=== PATIENT | female | born 1950 | race Caucasian/White ===

== ENCOUNTER 2019-08-08 10:13 | Inpatient (IN) ==
[2019-08-08] MEDS ORDERED: ONDANSETRON 4 MG/2 ML VIAL IV STA (10:39)
[2019-08-08 11:04] LABS: Basophils # 0.1 10*3/uL (0.0-0.2); Basophils % 0.3 % (0.0-0.8); Hematocrit 41.4 VOL% (35.7-47.0); Hemoglobin 13.4 GM/DL (12.0-16.0); Immature Granulocytes % 0.6 %; Lymphocytes # 0.7 10*3/uL (1.4-4.0); Lymphocytes % 4.1 % (21.3-54.2); Mean Corpuscular HGB Conc 32.4 GM/DL (32-36); Mean Corpuscular Volume 92.8 FL (87-102); Mean Platelet Volume 10.2 FL (9.6-12.0); Monocytes % 6.9 % (1.7-12.7); Neutrophils % 88.1 % (38.7-73.9); Platelet Count 227 T/CUMM (130-400); Red Blood Count 4.46 MC/CUMM (3.8-5.5); Red Cell Distribution Width 13.8 % (9.3-17.3); White Blood Count 17.2 T/CUMM (4-12)
[2019-08-08 11:25] LABS: Albumin 3.9 G/DL (3.4-5.0); Calcium 8.9 MG/DL (8.5-10.1); Osmolality,Calculated 283.5 MOS/KG (273-304); Total Protein 7.9 G/DL (6.4-8.3)
[2019-08-08 11:31] LABS: Amorphous Crystals,Urine Occasional /HPF (Few); Apearance,Urine Slightly Hazy (Clear); Bacteria,Urine Few /HPF (Few); Blood, Urine Negative (Negative); Glucose,Urine (UA) Negative (Negative); Hyaline Casts,Urine 15 /LPF (0-3); Ketones,Urine 5 mg/dL (Negative); Mucus,Urine Many /LPF (Occasional); Nitrite,Urine Negative (Negative); Protein,Urine 100 MG/DL; Urine Color Amber (Yellow); Urine Specific Gravity 1.024 (1.001-1.035); WBC,Urine 4 /HPF (0-6)
[2019-08-08 11:34] LABS: Bilirubin,Urine Small mg/dL (Negative)
[2019-08-08 11:42] LABS: Hypochromasia 1+; Lymphocytes 3 % (20-55); Platelet Estimate Adequate; Segmented Neutrophils 86 % (50-85); Total Cells Counted 100
[2019-08-08] MEDS ORDERED: cefTRIAXone 1,000 MG in SODIUM CHLORIDE 0.9% 100 ML IV STA (11:50)
[2019-08-08] MEDS ORDERED: AZITHROMYCIN INJ 500 MG in SODIUM CHLORIDE 0.9% 250 ML IV STA (11:50)
[2019-08-08] MEDS ORDERED: LEVOFLOXACIN INJ 750 MG in PREMIX 1 EACH IV SCH (14:00)
[2019-08-08] MEDS ORDERED: ACETAMINOPHEN 500 MG TABLET PO STA (14:07)
[2019-08-08] MEDS ORDERED: KETOROLAC 30 MG/1 ML VIAL IV PRN (14:50)
[2019-08-08] MEDS ORDERED: PROMETHAZINE 25 MG TABLET PO PRN (14:52)
[2019-08-08] MEDS ORDERED: diphenhydrAMINE CAP 25 MG CAPSULE PO PRN (14:52)
[2019-08-08] MEDS ORDERED: ACETAMINOPHEN 325 MG TABLET PO PRN (14:52)
[2019-08-08] MEDS ORDERED: traZODone 50 MG TABLET PO PRN (14:52)
[2019-08-08] MEDS ORDERED: ZALEPLON 5 MG CAPSULE PO PRN (14:52)
[2019-08-08] MEDS ORDERED: ALBUTEROL 2.5 MG/3 ML NEB RESP TX PRN (14:54)
[2019-08-08] MEDS: PIPERACILLIN/TAZOBACTAM 3,375 MG in SODIUM CHLORIDE 0.9% 100 ML IV SCH ×2 (16:22→22:35)
[2019-08-08] MEDS: methylPREDNISolone SOD SUC 40 MG/1 ML VIAL IV SCH ×2 (16:23→22:01)
[2019-08-08] MEDS: SODIUM CHLORIDE 0.45% 1,000 ML IV SCH (16:24)
[2019-08-08] MEDS: [UNRECOGNIZED DRUG - OTHER] PO SCH ×2 (16:24→22:07)
[2019-08-08] MEDS: ALBUTEROL/IPRATROPIUM 3 ML NEB RESP TX SCH (20:10)
[2019-08-08] MEDS ORDERED: SIMVASTATIN 20 MG TABLET PO SCH (21:00)
[2019-08-08] MEDS: busPIRone 15 MG TABLET PO SCH (22:00)
[2019-08-08] MEDS: MAGNESIUM OXIDE 400 MG TABLET PO SCH (22:00)
[2019-08-08] MEDS: clonazePAM 0.5 MG TABLET PO SCH (22:00)
[2019-08-08] MEDS: LISINOPRIL 5 MG TABLET PO SCH (22:01)
[2019-08-08] MEDS: ASPIRIN EC 81 MG TABLET PO SCH (22:01)
[2019-08-08] MEDS: SERTRALINE 100 MG TABLET PO SCH (22:01)
[2019-08-08] MEDS: HEPARIN 5,000 UNIT/1 ML VIAL SUBCUT SCH (22:01)
[2019-08-08] MEDS: DOCUSATE SODIUM 100 MG CAPSULE PO SCH (22:35)
[2019-08-09] MEDS: ALBUTEROL/IPRATROPIUM 3 ML NEB RESP TX SCH ×4 (01:43→19:43)
[2019-08-09] MEDS: methylPREDNISolone SOD SUC 40 MG/1 ML VIAL IV SCH ×4 (03:10→21:47)
[2019-08-09 05:41] LABS: Basophils % 0.2 % (0.0-0.8); Hematocrit 36.9 VOL% (35.7-47.0); Hemoglobin 11.5 GM/DL (12.0-16.0); Immature Granulocytes % 0.7 %; Immature Granulocytes Absolute 0.09 #; Lymphocytes # 0.6 10*3/uL (1.4-4.0); Lymphocytes % 4.6 % (21.3-54.2); Mean Corpuscular HGB Conc 31.2 GM/DL (32-36); Mean Corpuscular Volume 94.6 FL (87-102); Mean Platelet Volume 10.4 FL (9.6-12.0); Monocytes % 3.2 % (1.7-12.7); Neutrophils % 91.3 % (38.7-73.9); Platelet Count 210 T/CUMM (130-400); Red Cell Distribution Width 13.8 % (9.3-17.3); White Blood Count 12.5 T/CUMM (4-12)
[2019-08-09 06:06] LABS: Band Neutrophils 1 % (0-10); Hypochromasia Slight; Lymphocytes 1 % (20-55); Platelet Estimate Adequate; Segmented Neutrophils 91 % (50-85); Total Cells Counted 100
[2019-08-09 06:28] LABS: Albumin 3.3 G/DL (3.4-5.0); Bilirubin,Total 0.6 MG/DL (0.2-1.0); Calcium 8.6 MG/DL (8.5-10.1); Osmolality,Calculated 284.5 MOS/KG (273-304); Risk Ratio 2.65; Thyroid Stimulating Hormone 0.527 uIU/ml (0.358-3.74); Total Protein 7.3 G/DL (6.4-8.3); VLDL CHOLESTEROL 34.6 MG/DL
[2019-08-09] MEDS: SODIUM CHLORIDE 0.45% 1,000 ML IV SCH (06:32)
[2019-08-09] MEDS: HEPARIN 5,000 UNIT/1 ML VIAL SUBCUT SCH ×3 (06:33→22:00)
[2019-08-09] MEDS: PIPERACILLIN/TAZOBACTAM 3,375 MG in SODIUM CHLORIDE 0.9% 100 ML IV SCH (06:33)
[2019-08-09] MEDS: LEVOTHYROXINE 25 MCG TABLET PO SCH (06:33)
[2019-08-09] MEDS: busPIRone 15 MG TABLET PO SCH ×2 (09:01→21:53)
[2019-08-09] MEDS: DOCUSATE SODIUM 100 MG CAPSULE PO SCH ×2 (09:01→21:55)
[2019-08-09] MEDS: buPROPion XL 150 MG TABLET PO SCH (09:02)
[2019-08-09] MEDS: LEVOFLOXACIN INJ 750 MG in PREMIX 1 EACH IV SCH ×2 (09:02→10:38)
[2019-08-09] MEDS: MULTIVITAMIN (CENTRUM) TABLET PO SCH (09:02)
[2019-08-09] MEDS: PANTOPRAZOLE 40 MG TABLET PO SCH (09:02)
[2019-08-09] MEDS: [UNRECOGNIZED DRUG - OTHER] PO SCH ×3 (09:05→21:55)
[2019-08-09] MEDS: COENZYME Q10 100 MG CAPSULE PO SCH (10:35)
[2019-08-09] MEDS: clonazePAM 0.5 MG TABLET PO SCH (21:53)
[2019-08-09] MEDS: ASPIRIN EC 81 MG TABLET PO SCH (21:54)
[2019-08-09] MEDS: SIMVASTATIN 40 MG TABLET PO SCH (21:54)
[2019-08-09] MEDS: MAGNESIUM OXIDE 400 MG TABLET PO SCH (21:54)
[2019-08-09] MEDS: LISINOPRIL 5 MG TABLET PO SCH (21:54)
[2019-08-09] MEDS: SERTRALINE 100 MG TABLET PO SCH (21:54)
[2019-08-10] MEDS: ALBUTEROL/IPRATROPIUM 3 ML NEB RESP TX SCH ×4 (01:15→19:25)
[2019-08-10] MEDS: methylPREDNISolone SOD SUC 40 MG/1 ML VIAL IV SCH ×4 (03:45→22:07)
[2019-08-10 05:28] LABS: Basophils % 0.1 % (0.0-0.8); Hematocrit 35.8 VOL% (35.7-47.0); Hemoglobin 11.1 GM/DL (12.0-16.0); Immature Granulocytes % 0.9 %; Immature Granulocytes Absolute 0.09 #; Lymphocytes # 0.5 10*3/uL (1.4-4.0); Lymphocytes % 5.3 % (21.3-54.2); Mean Platelet Volume 10.4 FL (9.6-12.0); Neutrophils % 88.7 % (38.7-73.9); Platelet Count 238 T/CUMM (130-400); Red Blood Count 3.81 MC/CUMM (3.8-5.5); Red Cell Distribution Width 13.6 % (9.3-17.3); White Blood Count 10.3 T/CUMM (4-12)
[2019-08-10 06:13] LABS: Alanine Aminotransferase 17 U/L (13-56); Albumin 3.2 G/DL (3.4-5.0); Alkaline Phosphatase 35 U/L (45-117); Aspartate Amino Transferase 19 U/L (0-37); Bilirubin,Total < 0.39 MG/DL (0.2-1.0); Blood Urea Nitrogen 29 MG/DL (7-18); Calcium 8.4 MG/DL (8.5-10.1); Estimated Glom Filtration Rate 71 ML/MIN; Glucose 164 MG/DL (74-106); Osmolality,Calculated 288.4 MOS/KG (273-304)
[2019-08-10] MEDS: LEVOTHYROXINE 25 MCG TABLET PO SCH (06:41)
[2019-08-10] MEDS: HEPARIN 5,000 UNIT/1 ML VIAL SUBCUT SCH ×3 (06:41→22:08)
[2019-08-10] MEDS: busPIRone 15 MG TABLET PO SCH ×2 (09:01→20:34)
[2019-08-10] MEDS: DOCUSATE SODIUM 100 MG CAPSULE PO SCH ×2 (09:02→20:35)
[2019-08-10] MEDS: [UNRECOGNIZED DRUG - OTHER] PO SCH ×3 (09:02→20:36)
[2019-08-10] MEDS: buPROPion XL 150 MG TABLET PO SCH (09:02)
[2019-08-10] MEDS: PANTOPRAZOLE 40 MG TABLET PO SCH (09:02)
[2019-08-10] MEDS: MULTIVITAMIN (CENTRUM) TABLET PO SCH (09:02)
[2019-08-10] MEDS: COENZYME Q10 100 MG CAPSULE PO SCH (09:05)
[2019-08-10] MEDS: cefTRIAXone 1,000 MG in SYRINGE 1 EACH IV SCH (10:03)
[2019-08-10] MEDS: LEVOFLOXACIN INJ 750 MG in PREMIX 1 EACH IV SCH (10:09)
[2019-08-10] MEDS: DORNASE ALFA 2.5 MG/2.5 ML VIAL RESP TX SCH (19:25)
[2019-08-10] MEDS: MAGNESIUM OXIDE 400 MG TABLET PO SCH (20:35)
[2019-08-10] MEDS: clonazePAM 0.5 MG TABLET PO SCH (20:35)
[2019-08-10] MEDS: LISINOPRIL 5 MG TABLET PO SCH (20:35)
[2019-08-10] MEDS: SERTRALINE 100 MG TABLET PO SCH (20:35)
[2019-08-10] MEDS: ASPIRIN EC 81 MG TABLET PO SCH (20:35)
[2019-08-10] MEDS: SIMVASTATIN 40 MG TABLET PO SCH (20:35)
[2019-08-10] MEDS ORDERED: busPIRone 15 MG TABLET PO SCH (21:00)
[2019-08-11] MEDS: ALBUTEROL/IPRATROPIUM 3 ML NEB RESP TX SCH ×3 (01:03→13:17)
[2019-08-11] MEDS: methylPREDNISolone SOD SUC 40 MG/1 ML VIAL IV SCH ×3 (03:27→17:38)
[2019-08-11 05:05] LABS: Basophils % 0.2 % (0.0-0.8); Eosinophils % 0.1 % (0.00-10.9); Hematocrit 37.1 VOL% (35.7-47.0); Hemoglobin 11.6 GM/DL (12.0-16.0); Immature Granulocytes % 1.1 %; Immature Granulocytes Absolute 0.11 #; Lymphocytes # 1.1 10*3/uL (1.4-4.0); Lymphocytes % 10.8 % (21.3-54.2); Mean Corpuscular HGB Conc 31.3 GM/DL (32-36); Mean Corpuscular Volume 93.7 FL (87-102); Mean Platelet Volume 10.2 FL (9.6-12.0); Monocytes % 7.1 % (1.7-12.7); Neutrophils % 80.7 % (38.7-73.9); Platelet Count 252 T/CUMM (130-400); Red Blood Count 3.96 MC/CUMM (3.8-5.5); Red Cell Distribution Width 13.5 % (9.3-17.3); White Blood Count 10.1 T/CUMM (4-12)
[2019-08-11 05:40] LABS: Albumin 3.2 G/DL (3.4-5.0); Bilirubin,Total 0.4 MG/DL (0.2-1.0); Calcium 8.7 MG/DL (8.5-10.1); Total Protein 6.8 G/DL (6.4-8.3)
[2019-08-11] MEDS: LEVOTHYROXINE 25 MCG TABLET PO SCH (06:21)
[2019-08-11] MEDS: HEPARIN 5,000 UNIT/1 ML VIAL SUBCUT SCH ×2 (06:22→14:37)
[2019-08-11] MEDS: DORNASE ALFA 2.5 MG/2.5 ML VIAL RESP TX SCH (07:33)
[2019-08-11] MEDS ORDERED: busPIRone 15 MG TABLET PO SCH (09:00)
[2019-08-11] MEDS: buPROPion XL 150 MG TABLET PO SCH (10:02)
[2019-08-11] MEDS: MULTIVITAMIN (CENTRUM) TABLET PO SCH (10:03)
[2019-08-11] MEDS: cefTRIAXone 1,000 MG in SYRINGE 1 EACH IV SCH (10:03)
[2019-08-11] MEDS: PANTOPRAZOLE 40 MG TABLET PO SCH (10:03)
[2019-08-11] MEDS: DOCUSATE SODIUM 100 MG CAPSULE PO SCH (10:03)
[2019-08-11] MEDS: COENZYME Q10 100 MG CAPSULE PO SCH (10:03)
[2019-08-11] MEDS: LEVOFLOXACIN INJ 750 MG in PREMIX 1 EACH IV SCH (10:04)
[2019-08-11] MEDS: [UNRECOGNIZED DRUG - OTHER] PO SCH ×2 (10:04→14:41)
[2019-08-11 16:38] VITALS: BP 118/68
[2019-08-12] MEDS ORDERED: ERGOCALCIFEROL 50,000 UNIT CAPSULE PO SCH (09:00)
== END 2019-08-11 18:09 | disposition home health service (06) | DRG 194 ==
LOC: N.ED 10:13 → N.EDINP 13:42 → N.2E 14:56
PROVIDERS: ADMIT Internal Medicine; ATTEND Internal Medicine